=== PATIENT | female | born 1990 | race Caucasian/White ===

== ENCOUNTER 2022-12-24 21:48 | Emergency (ER) | payer OTHER ==
[~2022-12-24] VITALS: Ht 172.7 cm; Wt 65.0 kg
[2022-12-24 22:01] VITALS: BP 114/89; PULSE 75; RESP 16; TEMP 98.6; O2SAT 100
[2022-12-24] MEDS ORDERED: METF-907 MT (22:06)
== END 2022-12-24 23:14 | disposition home or self-care (01) ==
LOC: ER 22:23
DX: Z76.0 Encounter for issue of repeat prescription (principal); E11.9 Type 2 diabetes mellitus without complications
CPT/HCPCS: 82962; 99283